=== PATIENT | female | born 1975 | race Caucasian/White ===

== ENCOUNTER 2016-10-14 14:02 | Inpatient (IN) | payer OTHER ==
[~2016-10-14] VITALS: Ht 175.3 cm; Wt 102.2 kg
[~2016-10-14 14:02] MED LIST: LOSA50TA6 PO; ZOLM5TAB13 PO; ZOLP12.52 PO
[2016-10-14] MEDS ORDERED: IV NORMAL SALINE 1000ML BAG 500 ML IV ONE (15:00)
[2016-10-14] MEDS ORDERED: hydrALAZINE 20 MG/ML VIAL. IVP ONE (15:00)
[2016-10-14] MEDS ORDERED: IV NORMAL SALINE 1000ML BAG 1,000 ML IV ONE (15:00)
[2016-10-14 15:06] LABS: BASO # 0.1 x10^3/uL (0.0-0.2); BASO % 1 % (0-3); EOS % 2 % (0-3); HEMATOCRIT 40.2 % (36.0-47.0); HEMOGLOBIN 13.4 g/dL (12.0-15.5); LYMPH # 2.1 x10^3/uL (1.0-4.8); LYMPH % 24 % (24-48); MEAN CORPUSCULAR HEMOGLOBIN 29 pg (25-35); MEAN CORPUSCULAR HGB CONC 33 g/dL (31-37); MEAN CORPUSCULAR VOLUME 87 fL (79-100); MONO % 10 % (0-9); NEUT % 63 % (31-73); PLATELET COUNT 346 x10^3/uL (140-400); RED BLOOD COUNT 4.61 x10^6/uL (3.50-5.40); RED CELL DISTRIBUTION WIDTH 13.6 % (11.5-14.5)
[2016-10-14 15:18] LABS: CALCIUM 9.5 mg/dL (8.5-10.1); CREATININE 0.9 mg/dL (0.6-1.0); GFR 68.3; NEG OBC SER NEG; POS OBC SER POS; POTASSIUM 3.8 mmol/L (3.5-5.1)
[2016-10-14 15:23] LABS: ALBUMIN 3.6 g/dL (3.4-5.0); TOTAL BILIRUBIN 0.5 mg/dL (0.2-1.0); TOTAL PROTEIN 7.3 g/dL (6.4-8.2)
[2016-10-14 15:25] LABS: ETHANOL < 10 mg/dL (0-10)
--- NOTE | 2016-10-14 16:05 | PHYS DOC ---
Past Medical History Past Medical History: Anxiety, Depression, Hypertension Past Surgical History: No Surgical History Alcohol Use: Occasionally Drug Use: None Adult General Chief Complaint Chief Complaint: OVERDOSE HPI HPI Patient is a 41 year old female brought to the ED by her daughter due to a concern for Ambien overdose, the patient was not acting right. History is from the patient's daughter who brought her in. Daughter states that this morning the patient was found to be not acting right by family members. She had tried to drive her car out of the garage to go to work and was not able to get it out of the driveway. She was not acting right. It took a while for her family to convince the patient to come in and be checked out. In the meantime, police and EMS were involved. The patient's daughter looked at all of her medications and found that she had filled a bottle of Ambien yesterday, it started with 30, and there are only 23 left. Patient denies being suicidal or intentionally overdosing on Ambien. Patient states that usually she takes one half Ambien at bedtime and the other half some time during the night. She recalls the last night she did take the Ambien but was having trouble falling asleep and so thinks she may have just taken more and more. She has on occasion taken more than one when necessary and never had any trouble with it. I asked the patient if she is depressed, suicidal, or wanted to hurt herself, she is very adamant stating "I have too much to live for ". Patient's daughter does not believe she is depressed or suicidal. She has no history of suicidal ideation. She does take DULOXETINE daily and is not short on that medication. Patient is not able to contribute meaningfully to the history. She dozes off, her speech is slurred, and she is not answering questions appropriately. PCP Mitzi Sahu at [facility] Past medical history includes hypertension. It is not known whether she took her antihypertensive today. Review of Systems Review of Systems Review of systems not able to be obtained because of the patient's altered mental status Current Medications Current Medications Current Medications Medications (Trade) Dose Ordered Sig/Cynthia Start Time Stop Time Status Last Admin Dose Admin Hydralazine HCl (Apresoline) 10 mg 1X ONCE 10/14/16 15:00 10/14/16 15:01 DC 10/14/16 15:50 10 MG Sodium Chloride (Iv Sodium Chloride 0.9% 1000ml Bag) 1,000 ml @ 100 mls/hr 1X ONCE 10/14/16 15:00 10/15/16 00:59 Allergies Allergies Allergies Coded Allergies Type Severity Reaction Last Updated Verified cephalexin Allergy Intermediate Itching 05/09/15 Yes levofloxacin Allergy Intermediate Itching 05/09/15 Yes Physical Exam Physical Exam Constitutional: Well developed, well nourished, no acute distress, non-toxic appearance. Patient dozes off easily. Her speech is somewhat slurred. She behaves as if somewhat confused. Many of her answers have nothing to do with the question. HENT: Normocephalic, atraumatic, bilateral external ears normal, oropharynx moist, no oral exudates, nose normal. [] Eyes: PERRLA, EOMI, conjunctiva normal, no discharge. [] Neck: Normal range of motion, no stridor. [] Cardiovascular:Heart rate regular rhythm, no murmur [] Lungs & Thorax: Bilateral breath sounds clear to auscultation [] Abdomen: Bowel sounds normal, soft, no tenderness, no masses, no pulsatile masses. [] Skin: Warm, dry, no erythema, no rash. [] Extremities: No tenderness, no cyanosis, no clubbing, ROM intact, no edema. [] Neurologic: Lethargic as described above, nonfocal, normal motor function, normal sensory function, no focal deficits noted. [] Current Patient Data Vital Signs Vital Signs Date Time Temp Pulse Resp B/P Pulse Ox O2 Delivery O2 Flow Rate FiO2 10/14/16 15:50 89 205/121 10/14/16 14:25 98.3 18 98 Room Air 98.3 Lab Values Laboratory Tests Test 10/14/16 14:55 White Blood Count 9.0x10^3/uL (4.0-11.0) Red Blood Count 4.61x10^6/uL (3.50-5.40) Hemoglobin 13.4g/dL (12.0-15.5) Hematocrit 40.2% (36.0-47.0) Mean Corpuscular Volume 87fL (79-100) Mean Corpuscular Hemoglobin 29pg (25-35) Mean Corpuscular Hemoglobin Concent 33g/dL (31-37) Red Cell Distribution Width 13.6% (11.5-14.5) Platelet Count 346x10^3/uL (140-400) Neutrophils (%) (Auto) 63% (31-73) Lymphocytes (%) (Auto) 24% (24-48) Monocytes (%) (Auto) 10% (0-9) H Eosinophils (%) (Auto) 2% (0-3) Basophils (%) (Auto) 1% (0-3) Neutrophils # (Auto) 5.6x10^3uL (1.8-7.7) Lymphocytes # (Auto) 2.1x10^3/uL (1.0-4.8) Monocytes # (Auto) 0.9x10^3/uL (0.0-1.1) Eosinophils # (Auto) 0.2x10^3/uL (0.0-0.7) Basophils # (Auto) 0.1x10^3/uL (0.0-0.2) Sodium Level 136mmol/L (136-145) Potassium Level 3.8mmol/L (3.5-5.1) Chloride Level 98mmol/L (98-107) Carbon Dioxide Level 27mmol/L (21-32) Anion Gap 11 (6-14) Blood Urea Nitrogen 16mg/dL (7-20) Creatinine 0.9mg/dL (0.6-1.0) Estimated GFR (Cockcroft-Gault) 68.3 BUN/Creatinine Ratio 18 (6-20) Glucose Level 259mg/dL (70-99) H Calcium Level 9.5mg/dL (8.5-10.1) Total Bilirubin 0.5mg/dL (0.2-1.0) Aspartate Amino Transferase (AST) 30U/L (15-37) Alanine Aminotransferase (ALT) 46U/L (14-59) Alkaline Phosphatase 54U/L (46-116) Total Protein 7.3g/dL (6.4-8.2) Albumin 3.6g/dL (3.4-5.0) Albumin/Globulin Ratio 1.0 (1.0-1.7) Serum Test, Qualitative Negative (NEG) Salicylates Level < 2.8mg/dL (2.8-20.0) L Salicylate Last Dose Date Unk Salicylate Last Dose Time Unk Acetaminophen Level < 2mcg/ml (10-30) L Acetaminophen Last Dose Date Unk Acetaminophen Last Dose Time Unk Ethyl Alcohol Level < 10mg/dL (0-10) Laboratory Tests 10/14/16 14:55 Laboratory Tests 10/14/16 14:55 EKG EKG [] Radiology/Procedures Radiology/Procedures [] Course & Med Decision Making Course & Med Decision Making Pertinent Labs and Imaging studies reviewed. (See chart for details) 41-year-old lady who was found by family members to not be acting right and brought to the ED, it does appear that she has taken 7 Ambien pills sometime between last night and this morning, and what sounds like and accidental or unintentional overdose. I don't believe the patient is depressed or suicidal, the patient's daughter also does not believe she is suicidal. Poison control was consulted and they recommended observation of the patient until the Ambien wears off, no specific treatment was recommended. The patient was observed in the ED and labs were obtained, no other abnormalities noted to overdose were noted. Patient remained stable in the ED. I made arrangements to admit the patient. She is agreeable to that. I spoke with Dr. Elizabeth, [facility], who will admit the patient. I wrote bridge orders. [] Dragon Disclaimer Dragon Disclaimer This electronic medical record was generated, in whole or in part, using a voice recognition dictation system. Departure Departure Impression: Primary Impression: Ambien accidental overdose Disposition: ADMITTED INPATIENT Admitting Physician: Rizwan Elizabeth Condition: STABLE Referrals: MITZI STONE (PCP) FIDELINA CARRASCO MD Oct 14, 2016 16:05
[2016-10-14 16:18] LABS: BARBITURATES NEG (NEG); BENZODIAZEPINES NEG (NEG); CANNABINOIDS NEG (NEG); COCAINE NEG (NEG); METHADONE NEG (NEG); OPIATES NEG (NEG); PHENCYCLIDINE NEG (NEG)
[2016-10-14 16:23] LABS: ETHANOL, URINE NEG (NEG)
--- NOTE | 2016-10-14 17:06 | ACF ---
Admission Forms Criteria DRUG INGESTION OR OVERDOSE Clinical Indications for Admission to Inpatient Care ( Place 'X' for any and all applicable criteria): Admission is indicated for severe toxicity as indicated by ANY ONE of the following(1)(2)(3)(4)(5)(6): [X]I. Inpatient admission required rather than observation care (Also use Drug Ingestion or Overdose: Observation Care guideline as appropriate) because of ANY ONE of the following: [ ]a) Altered mental status that is severe or persistent [ ]b) Clinical finding (eg, metabolic acidosis, hypoglycemia, bradycardia) that is severe or persistent [ ]c) Toxic drug level that is persistent [ ]d) Psychiatric risk status not acceptable for outpatient management [ ]e) Continuous intravenous infusion of anticoagulation, platelet inhibitor, vasoactive, or antiarrhythmic medication (15)(16) [X]f) Other condition, treatment or monitoring requiring inpatient admission [ ]II. Respiratory abnormalities [ ]III. Specific finding indicating severe and likely prolonged drug toxicity [ ]IV. Hemodynamic instability [ ]V. Dangerous arrhythmia [ ]. Hypertension requiring inpatient treatment Extended stay beyond goal length of stay may be needed for (4): [ ]a) Neurologic or respiratory compromise [ ]b) Hemodynamic instability [ ]c) Persistent toxic drug levels (25) [ ]d) Severe drug toxicities or complications [ ]e) Ongoing antidote treatment (eg, acetaminophen overdose)(5) [ ]f) Older patients(65 years or older) The original [employer] content created by [employer] has been revised. The portions of the content which have been revised are identified through the use of italic text or in bold, and [facility] has neither reviewed nor approved the modified material. All other unmodified content is copyright [employer]. Please see references footnoted in the original [facility] edition 2016 Admission Criteria Met?: Yes PRESTON VASQUEZ Oct 14, 2016 17:06
--- NOTE | 2016-10-14 17:14 | PDOC1 ---
History and Physical Date of Admission Date of Admission 10/14/16 Identification/Chief Complaint Chief Complaint AMS Problems: Source Source: Caregiver, Chart review, Patient History of Present Illness History of Present Illness 41yo F, was sent by daughter for AMS today.; Daughter said last time seeing her was 4pm yesterday , was ok. She Was found acting weird today by her son in law at home, talking to herself, playing around on the ground. Pt was found took possible 6-7 pills of ambien, possible 10mg per pill. She usually takes 1.5 pill per night, last night she admitted probably took too much coz not sleeping well. Denies suicide. wants to go home now to take care her son. denies fever, chills, cough, sob, chest pain. Pt is alert , awake , aaox3 in ER when i saw her, as per daughter, better within the past hour in ER. Past Medical History Past Medical History Anxiety, Depression, Hypertension Past Surgical History Past Surgical History gastric bypass Family History Family History: No Significant Social History Smoke: <1 pack per day ALCOHOL: occassional Drugs: None Current Problem List Problem List Problems Medical Problems: (1) Ambien accidental overdose Status: Acute Current Medications Current Medications Current Medications Medications (Trade) Dose Ordered Sig/Cynthia Start Time Stop Time Status Last Admin Dose Admin Hydralazine HCl (Apresoline) 10 mg 1X ONCE 10/14/16 15:00 10/14/16 15:01 DC 10/14/16 15:50 10 MG Sodium Chloride (Iv Sodium Chloride 0.9% 1000ml Bag) 1,000 ml @ 100 mls/hr 1X ONCE 10/14/16 15:00 10/15/16 00:59 Allergies Allergies Allergies Coded Allergies Type Severity Reaction Last Updated Verified cephalexin Allergy Intermediate Itching 05/09/15 Yes levofloxacin Allergy Intermediate Itching 05/09/15 Yes ROS Review of System CONSTITUTIONAL: No fever or chills EYES: No recent changes SKIN: No rash or itching CARDIOVASCULAR: No chest pain, syncope, palpitations, or edema RESPIRATORY: No SOB or cough GASTROINTESTINAL: No nausea, vomiting or abdominal pain NEUROLOGICAL: No headaches or weakness ENDOCRINE: No cold or heat intolerance GENITOURINARY: No urgency or frequency of urination MUSCULOSKELETAL: No back pain or joint pain LYMPHATICS: No enlarged lymph nodes PSYCHIATRIC: No anxiety or depression Physical Exam Physical Exam GEN.: No apparent distress. Alert and oriented. HEENT: Head is normocephalic, atraumatic NECK: Supple. LUNGS: Clear to auscultation. HEART: RRR, S1, S2 present. Peripheral pulses intact ABDOMEN: Soft, nontender. Positive bowel sounds. EXTREMITIES: Without any cyanosis. NEUROLOGIC: Normal speech, normal tone PSYCHIATRIC: Normal affect, normal mood. SKIN: No ulcerations Vitals Vitals Vital Signs Date Time Temp Pulse Resp B/P Pulse Ox O2 Delivery O2 Flow Rate FiO2 10/14/16 15:50 89 205/121 10/14/16 14:25 98.3 18 98 Room Air 98.3 Labs Labs Laboratory Tests Test 10/14/16 14:55 10/14/16 16:00 White Blood Count 9.0x10^3/uL (4.0-11.0) Red Blood Count 4.61x10^6/uL (3.50-5.40) Hemoglobin 13.4g/dL (12.0-15.5) Hematocrit 40.2% (36.0-47.0) Mean Corpuscular Volume 87fL (79-100) Mean Corpuscular Hemoglobin 29pg (25-35) Mean Corpuscular Hemoglobin Concent 33g/dL (31-37) Red Cell Distribution Width 13.6% (11.5-14.5) Platelet Count 346x10^3/uL (140-400) Neutrophils (%) (Auto) 63% (31-73) Lymphocytes (%) (Auto) 24% (24-48) Monocytes (%) (Auto) 10% (0-9) Eosinophils (%) (Auto) 2% (0-3) Basophils (%) (Auto) 1% (0-3) Neutrophils # (Auto) 5.6x10^3uL (1.8-7.7) Lymphocytes # (Auto) 2.1x10^3/uL (1.0-4.8) Monocytes # (Auto) 0.9x10^3/uL (0.0-1.1) Eosinophils # (Auto) 0.2x10^3/uL (0.0-0.7) Basophils # (Auto) 0.1x10^3/uL (0.0-0.2) Sodium Level 136mmol/L (136-145) Potassium Level 3.8mmol/L (3.5-5.1) Chloride Level 98mmol/L (98-107) Carbon Dioxide Level 27mmol/L (21-32) Anion Gap 11 (6-14) Blood Urea Nitrogen 16mg/dL (7-20) Creatinine 0.9mg/dL (0.6-1.0) Estimated GFR (Cockcroft-Gault) 68.3 BUN/Creatinine Ratio 18 (6-20) Glucose Level 259mg/dL (70-99) Calcium Level 9.5mg/dL (8.5-10.1) Total Bilirubin 0.5mg/dL (0.2-1.0) Aspartate Amino Transf (AST/SGOT) 30U/L (15-37) Alanine Aminotransferase (ALT/SGPT) 46U/L (14-59) Alkaline Phosphatase 54U/L (46-116) Total Protein 7.3g/dL (6.4-8.2) Albumin 3.6g/dL (3.4-5.0) Albumin/Globulin Ratio 1.0 (1.0-1.7) Serum Test, Qualitative Negative (NEG) Salicylates Level < 2.8mg/dL (2.8-20.0) Salicylate Last Dose Date Unk Salicylate Last Dose Time Unk Acetaminophen Level < 2mcg/ml (10-30) Acetaminophen Last Dose Date Unk Acetaminophen Last Dose Time Unk Ethyl Alcohol Level < 10mg/dL (0-10) Urine Opiates Screen Neg (NEG) Urine Methadone Screen Neg (NEG) Urine Barbiturates Neg (NEG) Urine Phencyclidine Screen Neg (NEG) Urine Amphetamine/Methamphetamine Neg (NEG) Urine Benzodiazepines Screen Neg (NEG) Urine Cocaine Screen Neg (NEG) Urine Cannabinoids Screen Neg (NEG) Urine Ethyl Alcohol Neg (NEG) Laboratory Tests Test 10/14/16 14:55 10/14/16 16:00 White Blood Count 9.0x10^3/uL (4.0-11.0) Red Blood Count 4.61x10^6/uL (3.50-5.40) Hemoglobin 13.4g/dL (12.0-15.5) Hematocrit 40.2% (36.0-47.0) Mean Corpuscular Volume 87fL (79-100) Mean Corpuscular Hemoglobin 29pg (25-35) Mean Corpuscular Hemoglobin Concent 33g/dL (31-37) Red Cell Distribution Width 13.6% (11.5-14.5) Platelet Count 346x10^3/uL (140-400) Neutrophils (%) (Auto) 63% (31-73) Lymphocytes (%) (Auto) 24% (24-48) Monocytes (%) (Auto) 10% (0-9) Eosinophils (%) (Auto) 2% (0-3) Basophils (%) (Auto) 1% (0-3) Neutrophils # (Auto) 5.6x10^3uL (1.8-7.7) Lymphocytes # (Auto) 2.1x10^3/uL (1.0-4.8) Monocytes # (Auto) 0.9x10^3/uL (0.0-1.1) Eosinophils # (Auto) 0.2x10^3/uL (0.0-0.7) Basophils # (Auto) 0.1x10^3/uL (0.0-0.2) Sodium Level 136mmol/L (136-145) Potassium Level 3.8mmol/L (3.5-5.1) Chloride Level 98mmol/L (98-107) Carbon Dioxide Level 27mmol/L (21-32) Anion Gap 11 (6-14) Blood Urea Nitrogen 16mg/dL (7-20) Creatinine 0.9mg/dL (0.6-1.0) Estimated GFR (Cockcroft-Gault) 68.3 BUN/Creatinine Ratio 18 (6-20) Glucose Level 259mg/dL (70-99) Calcium Level 9.5mg/dL (8.5-10.1) Total Bilirubin 0.5mg/dL (0.2-1.0) Aspartate Amino Transf (AST/SGOT) 30U/L (15-37) Alanine Aminotransferase (ALT/SGPT) 46U/L (14-59) Alkaline Phosphatase 54U/L (46-116) Total Protein 7.3g/dL (6.4-8.2) Albumin 3.6g/dL (3.4-5.0) Albumin/Globulin Ratio 1.0 (1.0-1.7) Serum Test, Qualitative Negative (NEG) Salicylates Level < 2.8mg/dL (2.8-20.0) Salicylate Last Dose Date Unk Salicylate Last Dose Time Unk Acetaminophen Level < 2mcg/ml (10-30) Acetaminophen Last Dose Date Unk Acetaminophen Last Dose Time Unk Ethyl Alcohol Level < 10mg/dL (0-10) Urine Opiates Screen Neg (NEG) Urine Methadone Screen Neg (NEG) Urine Barbiturates Neg (NEG) Urine Phencyclidine Screen Neg (NEG) Urine Amphetamine/Methamphetamine Neg (NEG) Urine Benzodiazepines Screen Neg (NEG) Urine Cocaine Screen Neg (NEG) Urine Cannabinoids Screen Neg (NEG) Urine Ethyl Alcohol Neg (NEG) VTE Prophylaxis Ordered VTE Prophylaxis Devices: Yes VTE Pharmacological Prophylaxi: Yes Assessment/Plan Assessment/Plan 1. AMS, toxic encephalopathy with ambien accidental overdose 2. HTN urgency 3. anxiety, depression 4. tobaccoism plan: hold ambien cont home meds likely dc GARRICK Wilson MD Oct 14, 2016 17:14
[2016-10-14] MEDS ORDERED: ONDANSETRON PF 4 MG/2 ML VIAL. IV PRN (17:15)
[2016-10-14 18:00] VITALS: BP 184/117
[2016-10-14] MEDS ORDERED: ENOXAPARIN 40 MG/0.4 ML SYRINGE. SQ SCH (18:00)
[2016-10-14] MEDS ORDERED: DULO60CA6 PO (18:23)
[2016-10-14] MEDS ORDERED: VARE1TAB21 PO (18:24)
[2016-10-14] MEDS: hydrALAZINE 20 MG/ML VIAL. IVP PRN (18:50)
[2016-10-14 19:00] VITALS: BP 170/111
[2016-10-14] MEDS: ACETAMINOPHEN 325 MG TABLET. PO PRN (21:16)
[2016-10-14 22:48] VITALS: BP 139/102
[2016-10-15 02:49] VITALS: BP 173/121
[2016-10-15] MEDS: hydrALAZINE 20 MG/ML VIAL. IVP PRN (03:07)
[2016-10-15] MEDS: ACETAMINOPHEN 325 MG TABLET. PO PRN ×2 (03:11→08:40)
[2016-10-15 05:09] LABS: BASO # 0.1 x10^3/uL (0.0-0.2); BASO % 1 % (0-3); EOS % 4 % (0-3); HEMATOCRIT 41.6 % (36.0-47.0); HEMOGLOBIN 13.7 g/dL (12.0-15.5); LYMPH # 2.2 x10^3/uL (1.0-4.8); LYMPH % 29 % (24-48); MEAN CORPUSCULAR HEMOGLOBIN 29 pg (25-35); MEAN CORPUSCULAR HGB CONC 33 g/dL (31-37); MEAN CORPUSCULAR VOLUME 87 fL (79-100); MONO % 10 % (0-9); NEUT % 56 % (31-73); PLATELET COUNT 355 x10^3/uL (140-400); RED BLOOD COUNT 4.79 x10^6/uL (3.50-5.40); RED CELL DISTRIBUTION WIDTH 13.6 % (11.5-14.5); WHITE BLOOD COUNT 7.7 x10^3/uL (4.0-11.0)
[2016-10-15 05:32] LABS: CREATININE 0.7 mg/dL (0.6-1.0); GFR 91.3; POTASSIUM 3.9 mmol/L (3.5-5.1)
[2016-10-15 07:00] VITALS: BP 156/95
[2016-10-15] MEDS ORDERED: LOSARTAN POTASSIUM 50 MG TABLET. PO SCH (09:00)
[2016-10-15 11:00] VITALS: BP 132/82
[2016-10-15] MEDS ORDERED: METF500T4 PO (12:39)
[2016-10-15] MEDS ORDERED: BUTALB/APAP/CAFEIN 50/325/40MG TABLET. PO PRN (12:45)
[2016-10-15] MEDS ORDERED: SUMATRIPTAN SUCCINATE 25 MG TABLET. PO PRN (12:45)
--- NOTE | 2016-10-15 12:47 | PDOC3 ---
Discharge Summary Visit Information Date of Admission: Oct 14, 2016 Date of Discharge: Oct 15, 2016 Admitting Diagnosis: ambien OD Final Diagnosis anxiety depression insomnia adjustment disorder, divorce obesity BMI 33 Dm2, had been diet controlled htn, Problems Medical Problems: (1) Ambien accidental overdose Status: Acute Brief Hospital Course Allergies Allergies Coded Allergies Type Severity Reaction Last Updated Verified cephalexin Allergy Intermediate Itching 05/09/15 Yes levofloxacin Allergy Intermediate Itching 05/09/15 Yes Vital Signs Vital Signs Date Time Temp Pulse Resp B/P Pulse Ox O2 Delivery O2 Flow Rate FiO2 10/15/16 11:00 98.2 87 17 132/82 97 Room Air 98.2 Lab Results Laboratory Tests Test 10/14/16 14:55 10/14/16 16:00 10/15/16 04:50 White Blood Count 9.0x10^3/uL (4.0-11.0) 7.7x10^3/uL (4.0-11.0) Red Blood Count 4.61x10^6/uL (3.50-5.40) 4.79x10^6/uL (3.50-5.40) Hemoglobin 13.4g/dL (12.0-15.5) 13.7g/dL (12.0-15.5) Hematocrit 40.2% (36.0-47.0) 41.6% (36.0-47.0) Mean Corpuscular Volume 87fL (79-100) 87fL (79-100) Mean Corpuscular Hemoglobin 29pg (25-35) 29pg (25-35) Mean Corpuscular Hemoglobin Concent 33g/dL (31-37) 33g/dL (31-37) Red Cell Distribution Width 13.6% (11.5-14.5) 13.6% (11.5-14.5) Platelet Count 346x10^3/uL (140-400) 355x10^3/uL (140-400) Neutrophils (%) (Auto) 63% (31-73) 56% (31-73) Lymphocytes (%) (Auto) 24% (24-48) 29% (24-48) Monocytes (%) (Auto) 10% (0-9) 10% (0-9) Eosinophils (%) (Auto) 2% (0-3) 4% (0-3) Basophils (%) (Auto) 1% (0-3) 1% (0-3) Neutrophils # (Auto) 5.6x10^3uL (1.8-7.7) 4.3x10^3uL (1.8-7.7) Lymphocytes # (Auto) 2.1x10^3/uL (1.0-4.8) 2.2x10^3/uL (1.0-4.8) Monocytes # (Auto) 0.9x10^3/uL (0.0-1.1) 0.8x10^3/uL (0.0-1.1) Eosinophils # (Auto) 0.2x10^3/uL (0.0-0.7) 0.3x10^3/uL (0.0-0.7) Basophils # (Auto) 0.1x10^3/uL (0.0-0.2) 0.1x10^3/uL (0.0-0.2) Sodium Level 136mmol/L (136-145) 136mmol/L (136-145) Potassium Level 3.8mmol/L (3.5-5.1) 3.9mmol/L (3.5-5.1) Chloride Level 98mmol/L (98-107) 98mmol/L (98-107) Carbon Dioxide Level 27mmol/L (21-32) 26mmol/L (21-32) Anion Gap 11 (6-14) 12 (6-14) Blood Urea Nitrogen 16mg/dL (7-20) 8mg/dL (7-20) Creatinine 0.9mg/dL (0.6-1.0) 0.7mg/dL (0.6-1.0) Estimated GFR (Cockcroft-Gault) 68.3 91.3 BUN/Creatinine Ratio 18 (6-20) Glucose Level 259mg/dL (70-99) 265mg/dL (70-99) Calcium Level 9.5mg/dL (8.5-10.1) 9.0mg/dL (8.5-10.1) Total Bilirubin 0.5mg/dL (0.2-1.0) Aspartate Amino Transf (AST/SGOT) 30U/L (15-37) Alanine Aminotransferase (ALT/SGPT) 46U/L (14-59) Alkaline Phosphatase 54U/L (46-116) Total Protein 7.3g/dL (6.4-8.2) Albumin 3.6g/dL (3.4-5.0) Albumin/Globulin Ratio 1.0 (1.0-1.7) Serum Test, Qualitative Negative (NEG) Salicylates Level < 2.8mg/dL (2.8-20.0) Salicylate Last Dose Date Unk Salicylate Last Dose Time Unk Acetaminophen Level < 2mcg/ml (10-30) Acetaminophen Last Dose Date Unk Acetaminophen Last Dose Time Unk Ethyl Alcohol Level < 10mg/dL (0-10) Urine Opiates Screen Neg (NEG) Urine Methadone Screen Neg (NEG) Urine Barbiturates Neg (NEG) Urine Phencyclidine Screen Neg (NEG) Urine Amphetamine/Methamphetamine Neg (NEG) Urine Benzodiazepines Screen Neg (NEG) Urine Cocaine Screen Neg (NEG) Urine Cannabinoids Screen Neg (NEG) Urine Ethyl Alcohol Neg (NEG) Laboratory Tests Test 10/14/16 14:55 10/14/16 16:00 10/15/16 04:50 White Blood Count 9.0x10^3/uL (4.0-11.0) 7.7x10^3/uL (4.0-11.0) Red Blood Count 4.61x10^6/uL (3.50-5.40) 4.79x10^6/uL (3.50-5.40) Hemoglobin 13.4g/dL (12.0-15.5) 13.7g/dL (12.0-15.5) Hematocrit 40.2% (36.0-47.0) 41.6% (36.0-47.0) Mean Corpuscular Volume 87fL (79-100) 87fL (79-100) Mean Corpuscular Hemoglobin 29pg (25-35) 29pg (25-35) Mean Corpuscular Hemoglobin Concent 33g/dL (31-37) 33g/dL (31-37) Red Cell Distribution Width 13.6% (11.5-14.5) 13.6% (11.5-14.5) Platelet Count 346x10^3/uL (140-400) 355x10^3/uL (140-400) Neutrophils (%) (Auto) 63% (31-73) 56% (31-73) Lymphocytes (%) (Auto) 24% (24-48) 29% (24-48) Monocytes (%) (Auto) 10% (0-9) 10% (0-9) Eosinophils (%) (Auto) 2% (0-3) 4% (0-3) Basophils (%) (Auto) 1% (0-3) 1% (0-3) Neutrophils # (Auto) 5.6x10^3uL (1.8-7.7) 4.3x10^3uL (1.8-7.7) Lymphocytes # (Auto) 2.1x10^3/uL (1.0-4.8) 2.2x10^3/uL (1.0-4.8) Monocytes # (Auto) 0.9x10^3/uL (0.0-1.1) 0.8x10^3/uL (0.0-1.1) Eosinophils # (Auto) 0.2x10^3/uL (0.0-0.7) 0.3x10^3/uL (0.0-0.7) Basophils # (Auto) 0.1x10^3/uL (0.0-0.2) 0.1x10^3/uL (0.0-0.2) Sodium Level 136mmol/L (136-145) 136mmol/L (136-145) Potassium Level 3.8mmol/L (3.5-5.1) 3.9mmol/L (3.5-5.1) Chloride Level 98mmol/L (98-107) 98mmol/L (98-107) Carbon Dioxide Level 27mmol/L (21-32) 26mmol/L (21-32) Anion Gap 11 (6-14) 12 (6-14) Blood Urea Nitrogen 16mg/dL (7-20) 8mg/dL (7-20) Creatinine 0.9mg/dL (0.6-1.0) 0.7mg/dL (0.6-1.0) Estimated GFR (Cockcroft-Gault) 68.3 91.3 BUN/Creatinine Ratio 18 (6-20) Glucose Level 259mg/dL (70-99) 265mg/dL (70-99) Calcium Level 9.5mg/dL (8.5-10.1) 9.0mg/dL (8.5-10.1) Total Bilirubin 0.5mg/dL (0.2-1.0) Aspartate Amino Transf (AST/SGOT) 30U/L (15-37) Alanine Aminotransferase (ALT/SGPT) 46U/L (14-59) Alkaline Phosphatase 54U/L (46-116) Total Protein 7.3g/dL (6.4-8.2) Albumin 3.6g/dL (3.4-5.0) Albumin/Globulin Ratio 1.0 (1.0-1.7) Serum Test, Qualitative Negative (NEG) Salicylates Level < 2.8mg/dL (2.8-20.0) Salicylate Last Dose Date Unk Salicylate Last Dose Time Unk Acetaminophen Level < 2mcg/ml (10-30) Acetaminophen Last Dose Date Unk Acetaminophen Last Dose Time Unk Ethyl Alcohol Level < 10mg/dL (0-10) Urine Opiates Screen Neg (NEG) Urine Methadone Screen Neg (NEG) Urine Barbiturates Neg (NEG) Urine Phencyclidine Screen Neg (NEG) Urine Amphetamine/Methamphetamine Neg (NEG) Urine Benzodiazepines Screen Neg (NEG) Urine Cocaine Screen Neg (NEG) Urine Cannabinoids Screen Neg (NEG) Urine Ethyl Alcohol Neg (NEG) Brief Hospital Course Ms. Oakley is a 41 old female admit after ambien OD. severe depression, w. insomnia and anxiety, unable to sleep also migrane awake, admitted, obs overnight, still tearful and upset at [facility], asked PAT team to screen for close psych f/u Discharge Information Condition at Discharge: Improved Follow Up: Weeks Disposition/Orders: D/C to Home Scheduled Duloxetine Hcl (Cymbalta) 60 MG PO DAILY (Reported) Losartan Potassium (Losartan Potassium) 1 TAB PO DAILY (Reported) Varenicline Tartrate (Chantix) 1 MG PO BID (Reported) Zolmitriptan (Zomig) 1 TAB PO 1X (Reported) Zolpidem Tartrate (Ambien Cr) 1 TAB PO QHS (Reported) Patient Instructions Patient Instructions time > 30 min DOMITILA HERNANDEZ MD Oct 15, 2016 12:47
[2016-10-15] MEDS ORDERED: DEXTROSE 50% 25 GM / 50ML DISP.SYRIN. IV PRN (13:00)
[2016-10-15 14:40] VITALS: BP 148/99
[2016-10-15] MEDS ORDERED: INSULIN ASPART 300 UNITS/3 ML INSULN.PEN SQ SCH (17:00)
== END 2016-10-15 15:30 | disposition home or self-care (01) | DRG 917 ==
LOC: ER 14:02 → 5 SOUTH 15:50
PROVIDERS: ADMIT Internal Medicine; ATTEND Internal Medicine
DX: T42.6X1A Poisoning by other antiepileptic and sedative-hypnotic drugs, accidental (unintentional), initial encounter (principal); G92 Toxic encephalopathy; E11.9 Type 2 diabetes mellitus without complications; E66.9 Obesity, unspecified; Z68.33 Body mass index [BMI] 33.0-33.9, adult; F17.200 Nicotine dependence, unspecified, uncomplicated; F32.9 Major depressive disorder, single episode, unspecified; F41.9 Anxiety disorder, unspecified; F43.20 Adjustment disorder, unspecified; I10 Essential (primary) hypertension; I16.0 Hypertensive urgency; Z88.1 Allergy status to other antibiotic agents; Z88.8 Allergy status to other drugs, medicaments and biological substances; Z98.84 Bariatric surgery status; Y92.89 Other specified places as the place of occurrence of the external cause
CPT/HCPCS: 36415; 80048; 80053; 84703; 85027; 96361; 96374; G0480; G0481; G6038; J0360; J1815; J7030; 80196; 99285-25

== ENCOUNTER 2017-11-07 22:27 | Emergency (ER) | payer OTHER ==
[2017-11-07] MEDS ORDERED: fentaNYL PF VIAL 100 MCG/2 ML VIAL (22:55)
[2017-11-07] MEDS: fentaNYL PF VIAL 100 MCG/2 ML VIAL IV ×2 (23:00→23:44)
[2017-11-07] MEDS: IV NORMAL SALINE 1000ML BAG 1,000 ML IV (23:01)
[2017-11-08] MEDS: fentaNYL PF VIAL 100 MCG/2 ML VIAL IV (00:22)
[2017-11-08] MEDS ORDERED: CONTRAST GIVEN MC (00:30)
[2017-11-08] MEDS: IOHEXOL 300 MG/ML 100ML VIAL. IV (00:36)
== END 2017-11-08 04:02 | disposition home or self-care (01) ==
LOC: ER 22:27
DX: S30.0XXA Contusion of lower back and pelvis, initial encounter (principal); F41.9 Anxiety disorder, unspecified; F32.9 Major depressive disorder, single episode, unspecified; I10 Essential (primary) hypertension; Z88.1 Allergy status to other antibiotic agents; X58.XXXA Exposure to other specified factors, initial encounter; Y93.89 Activity, other specified; Y92.89 Other specified places as the place of occurrence of the external cause; Y99.8 Other external cause status
CPT/HCPCS: 70450; 71045; 72125; 72131; 72170; 74170; 96374; 96375; 96376; 99284-25; 99285-25; J2060; J3010; J7030; Q9967

== ENCOUNTER → 2017-11-15 | Outpatient (CLI) | payer OTHER | END | disposition home or self-care (01) | LOC: KCIC MAMMO 16:17 | DX: Z12.31 Encounter for screening mammogram for malignant neoplasm of breast (principal) | CPT/HCPCS: 77067 ==

== ENCOUNTER → 2019-09-22 | Outpatient (CLI) | payer OTHER ==
[~2019-09-22] MED LIST changes: +DULO60CA6 PO; +HYDR-3164 PO; +LOSA-73 PO; -LOSA50TA6 PO; +METF500T16 PO; +VARE1TAB21 PO
--- NOTE | 2019-09-22 14:55 | KCIC ---
Bilateral diagnostic digital mammograms with 3-D tomosynthesis: Reason for examination: Right breast lump for 2 1/2 months with pulling pain sensation for 7 months. Comparison is made to previous study dated 11/15/2017. Bilateral mammograms in CC and oblique projections were obtained with 2-D imaging and 3-D tomosynthesis imaging on a Siemens Inspiration unit and reviewed on the workstation. Interpretation was made with the benefit of CAD. The skin and nipples show no abnormalities. No abnormal axillary lymph nodes are seen. The breast parenchyma is heterogeneously dense. (Breast density: Category C.) There does appear to be some focal nodular asymmetry at the 10:00 B position of the right breast which appears to correspond to the area of clinical concern. Ultrasound to follow. There is also some nodularity present anteriorly in the lower outer quadrant of the left breast. Ultrasound to follow. There are no suspicious calcifications seen. Impression: Nodular density at the 10:00 B position of the right breast which corresponds to the area of clinical concern. Nodularity in the lower outer quadrant of the left breast anteriorly. Ultrasound to follow. Your patient's mammogram demonstrates that she has dense breast tissue (breast density category C or D), which could hide abnormalities, and if she has other risk factors for breast cancer that have been identified, she might benefit from supplemental screening tests that may be suggested by you as her ordering physician. Dense breast tissue, in and of itself, is a relatively common condition. Therefore, this information is not provided to cause undue concern, but rather to raise your awareness and to promote discussion with your patient regarding the presence of other risk factors, in addition to dense breast tissue. Your patient's mammography results will be sent to her. BI-RAD Category 0: Incomplete. Needs additional imaging evaluation. Bilateral breast ultrasound: Bilateral breast ultrasound including the axillary regions of both breasts was performed. In the right breast at the 10:00 position between 5 and 7 cm from the nipple, there is a lobulated hypoechoic nodule measuring 1.3 cm in greatest dimension. Further evaluation with ultrasound-guided biopsy is recommended. No other focal suspicious-appearing nodules are seen. No abnormal appearing lymph nodes are seen in the axilla. In the left breast, there is some patchy fibrocystic type changes at the 4:00 position 6 cm from the nipple. There is some ductal ectasia in the retroareolar position as well as a small 4.6 mm cystic lesion in the 4:00 retroareolar position. No suspicious-appearing lesions are seen. No abnormal appearing lymph nodes are seen in the axilla. IMPRESSION: 1.3 cm lobulated lesion at the 10:00 position of the right breast which corresponds to the area of clinical concern. Ultrasound-guided biopsy is recommended. Fibrocystic type changes in the left breast at the 4:00 position. Recommend 6 month follow-up with left breast ultrasound. BI-RADS Category 4: Suspicious. These findings have been discussed with the patient and the patient's PA, Mitzi Harper, was notified about these findings at 1445 on 09/22/2019. "Our facility is accredited by the [employer] Mammography Program." This patient's information has been entered into a reminder system for the patient to be notified with the results of her examination and a target date for the next mammogram. Electronically signed by: Elsi Santamaria MD (09/22/2019 2:52 PM) [id number]
== END | disposition home or self-care (01) ==
LOC: KCIC MAMMO 12:46
PROVIDERS: ATTEND Physician Assistant Medical
DX: N63.11 Unspecified lump in the right breast, upper outer quadrant (principal); N60.02 Solitary cyst of left breast; N60.42 Mammary duct ectasia of left breast; R92.2 Inconclusive mammogram; I25.10 Atherosclerotic heart disease of native coronary artery without angina pectoris
CPT/HCPCS: 76641; 77066; G0279; 77062